=== PATIENT | female | born 2000 | race African-American/Black ===

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

== ENCOUNTER 2022-02-05 22:53 | Emergency (ER) | payer OTHER ==
[2022-02-05 23:29] VITALS: BP 103/59; PULSE 105; RESP 20; TEMP 98; BMI 21.1
== END 2022-02-06 01:05 | disposition home or self-care (01) ==
LOC: JERFT 22:53
DX: S01.112A Laceration without foreign body of left eyelid and periocular area, initial encounter (principal); W20.8XXA Other cause of strike by thrown, projected or falling object, initial encounter
CPT/HCPCS: 99281-25

== ENCOUNTER 2022-03-27 16:13 | Emergency (ER) | payer OTHER ==
[2022-03-27 16:36] VITALS: BP 111/73; PULSE 72; RESP 18; TEMP 98.1; BMI 20.4
== END 2022-03-27 17:28 | disposition home or self-care (01) ==
LOC: JER 16:13
DX: J06.9 Acute upper respiratory infection, unspecified (principal)
CPT/HCPCS: 0241U-QW; 99283-25

== ENCOUNTER 2022-05-25 13:48 | Emergency (ER) | payer OTHER ==
[2022-05-25 14:01] VITALS: BP 113/71; RESP 18; TEMP 98; BMI 21.1
[2022-05-25] MEDS ORDERED: ACETAMINOPHEN 500 MG TABLET (FP) PO ONE (14:33)
[2022-05-25] MEDS ORDERED: ONDANSETRON *ODT* 4 MG TABLET SL ONE (14:33)
[2022-05-25] MEDS ORDERED: ONDANSETRON *ODT* 4 MG TABLET ONE (14:44)
[2022-05-25] MEDS ORDERED: ACETAMINOPHEN 500 MG TABLET (FP) ONE (14:44)
[2022-05-25 16:15] VITALS: PULSE 90
== END 2022-05-25 16:15 | disposition home or self-care (01) ==
LOC: JER 13:48
DX: J09.X2 Influenza due to identified novel influenza A virus with other respiratory manifestations (principal); R05.1 Acute cough; J02.9 Acute pharyngitis, unspecified
CPT/HCPCS: 0241U-QW; 99283-25; Q0162

== ENCOUNTER 2022-07-03 09:42 | Emergency (ER) | payer OTHER ==
[2022-07-03 09:53] VITALS: BP 112/70; PULSE 111; RESP 16; TEMP 98.3; BMI 21.3
== END 2022-07-03 11:24 | disposition home or self-care (01) ==
LOC: JER 09:42
DX: U07.1 COVID-19 (principal)
CPT/HCPCS: 0241U-QW; 99283-25

== ENCOUNTER 2022-08-14 00:19 | Emergency (ER) | payer OTHER ==
[2022-08-14 00:30] VITALS: BP 126/74; PULSE 81; RESP 20; TEMP 98.2; BMI 23.0
[2022-08-14] MEDS ORDERED: ACETAMINOPHEN 500 MG TABLET (FP) PO ONE (01:10)
[2022-08-14] MEDS ORDERED: guaiFENesin/D-M SUGAR-FREE/ACLHOL-FREE 118 ML BOTTLE PO ONE (01:14)
[2022-08-14] MEDS ORDERED: ACETAMINOPHEN 325 MG TABLET (FP) ONE (01:23)
[2022-08-14] MEDS ORDERED: guaiFENesin/D-METHORPHAN HB 10 ML UNIT-DOSE CUPS ONE (01:23)
[2022-08-14 03:34] LABS: THROAT:GRP A STREP NOT DETECTED (NOTDETECTED)
== END 2022-08-14 03:58 | disposition home or self-care (01) ==
LOC: JER 00:19
DX: J02.9 Acute pharyngitis, unspecified (principal); R05.1 Acute cough
CPT/HCPCS: 0241U-QW; 87651; 99283-25

== ENCOUNTER 2023-06-07 22:34 | Emergency (ER) | payer OTHER ==
[2023-06-07 22:46] VITALS: BP 106/59; PULSE 67; RESP 18; TEMP 98.2; BMI 20.1
[2023-06-08 00:54] LABS: HEMOGLOBIN 11.4 GM/dL (10.7-15.3); MCH 30.5 pg (25.7-33.7); MCHC 32.7 g/dl (32.0-36.0); MEAN CELL VOLUME 93.2 fl (80-96); PLATELET COUNT 368 10^3/uL (134-434); RBC 3.75 M/mm3 (3.60-5.2); RDW 13.4 % (11.6-15.6); WHITE BLOOD COUNT 9.1 K/mm3 (4.0-10.0)
[2023-06-08 00:56] LABS: EPI CELLS 6 /uL (0-25.1); HYALINE CASTS 0 /uL (0-3.1); PH,URINE 6.5 (5.0-8.0); URINE APPEARANCE CLEAR; URINE BACTERIA 86 /uL (0-1359); URINE BILIRUBIN NEGATIVE (NEGATIVE); URINE COLOR YELLOW; URINE GLUCOSE (UA) NEGATIVE (NEGATIVE); URINE KETONE NEGATIVE (NEGATIVE); URINE LEUK ESTERASE NEGATIVE (NEGATIVE); URINE NITRITE NEGATIVE (NEGATIVE); URINE PROTEIN NEGATIVE (NEGATIVE); URINE RBC 18 /uL (0-23.9); URINE WBC 5 /uL (0-25.8)
[2023-06-08 01:13] LABS: CHLORIDE 105 mmol/L (98-107); POTASSIUM 3.8 mmol/L (3.5-5.1); SODIUM 139 mmol/L (136-145)
[2023-06-08 01:15] LABS: CALCIUM 8.9 mg/dL (8.5-10.1); GLUCOSE,RANDOM 93 mg/dL (74-106)
[2023-06-08 01:16] LABS: ALBUMIN 3.5 g/dl (3.4-5.0); ANION GAP 5 mmol/L (4-13); BLOOD UREA NITROGEN 9.2 mg/dL (7-18); CO2 29 mmol/L (21-32); LIPASE 80 U/L (73-393); MAGNESIUM 2.1 mg/dL (1.8-2.4)
[2023-06-08 01:18] LABS: CREATININE 0.8 mg/dL (0.55-1.3); SGOT/AST 14 U/L (15-37)
[2023-06-08 01:20] LABS: BILIRUBIN,TOTAL 0.3 mg/dL (0.2-1); TOT PROT 7.7 g/dl (6.4-8.2)
[2023-06-08 01:21] LABS: ALK PHOS 54 U/L (45-117)
[2023-06-08] MEDS ORDERED: KETOROLAC TROMETHAMINE 30 MG/1 ML VIAL IVPUSH ONE (01:23)
[2023-06-08 01:25] LABS: SGPT/ALT < 6 U/L (13-61)
[2023-06-08] MEDS ORDERED: KETOROLAC TROMETHAMINE 30 MG/1 ML VIAL ONE (01:29)
== END 2023-06-08 03:14 | disposition home or self-care (01) ==
LOC: JER 22:34
PROC: 3E0333Z Introduction of Anti-inflammatory into Peripheral Vein, Percutaneous Approach (ICD-10-PCS; principal; 2023-06-08)
DX: R11.2 Nausea with vomiting, unspecified (principal); R10.11 Right upper quadrant pain; B34.9 Viral infection, unspecified
CPT/HCPCS: 36415; 76705-TC; 80053; 81003; 83690; 83735; 84703; 85027; 87086; 93005; 93010; 99285-25

== ENCOUNTER 2023-09-01 11:56 | Emergency (ER) | payer OTHER ==
[2023-09-01 12:32] VITALS: RESP 18; TEMP 98.3; BMI 22.4
[2023-09-01] MEDS ORDERED: ACETAMINOPHEN 325 MG TABLET (FP) ONE (13:03)
[2023-09-01] MEDS: ACETAMINOPHEN 500 MG TABLET (FP) PO ONE (13:11)
[2023-09-01 15:10] VITALS: BP 108/60; PULSE 64
== END 2023-09-01 15:11 | disposition home or self-care (01) ==
LOC: JER 11:56
DX: M25.572 Pain in left ankle and joints of left foot (principal); S93.402A Sprain of unspecified ligament of left ankle, initial encounter; R22.42 Localized swelling, mass and lump, left lower limb; W01.0XXA Fall on same level from slipping, tripping and stumbling without subsequent striking against object, initial encounter
CPT/HCPCS: 73610-TC-LT-FY; 73630-TC-LT; 99283-25

== ENCOUNTER 2024-08-03 21:31 | Emergency (ER) | payer OTHER ==
[2024-08-03 21:40] VITALS: BP 127/70; PULSE 95; RESP 20; TEMP 101.3; BMI 21.7
[2024-08-03] MEDS ORDERED: ACETAMINOPHEN 500 MG TABLET (FP) ONE (22:13)
[2024-08-03] MEDS: ACETAMINOPHEN 500 MG TABLET (FP) PO ONE (22:17)
[2024-08-03] MEDS ORDERED: ONDANSETRON *ODT* 4 MG TABLET ONE ×2 (22:35→22:36)
[2024-08-03] MEDS: ONDANSETRON *ODT* 4 MG TABLET SL ONE (22:37)
== END 2024-08-03 23:15 | disposition home or self-care (01) ==
LOC: JERFT 21:31
DX: J10.1 Influenza due to other identified influenza virus with other respiratory manifestations (principal); R50.9 Fever, unspecified; R05.9 Cough, unspecified; R11.2 Nausea with vomiting, unspecified; Z20.822 Contact with and (suspected) exposure to COVID-19
CPT/HCPCS: 0241U-QW; 71046-TC-FY; 99284-25; Q0162